=== PATIENT | female | born 1975 ===

== ENCOUNTER 2016-12-04 08:05 | Outpatient (CLI) | payer OTHER ==
--- NOTE | 2016-12-04 10:41 | Ultrasound Report ---
TRANSABDOMINAL AND TRANSVAGINAL PELVIC ULTRASOUND: 12/04/16 08:05:00 CLINICAL: Right lower quadrant pain. FINDINGS: Transabdominal and transvaginal pelvic ultrasound demonstrated a normal uterus measuring 9.3 x 4.5 x 6.7 cm. Normal uterine contour and echogenicity. No uterine fibroids or mass.The endometrium is normal and measures 6.0 mm AP thickness. Normal ovaries. The right ovary measures 3.2 x 1.8 x 2.7cm. The left ovary measures 2.8 x 1.5 x 3.4cm. A dominant follicle in the left ovary measures 1.3 cm. No adnexal mass. No free fluid. Normal urinary bladder. IMPRESSION: Normal pelvis with normal uterus and ovaries.
== END 2016-12-04 08:06 | disposition home or self-care (01) ==
LOC: SPVWC 08:05
PROVIDERS: ATTEND Internal Medicine
DX: R10.31 Right lower quadrant pain (principal)
CPT/HCPCS: 76830; 76856